=== PATIENT | female | born 2000 | race Hispanic/Latino ===

== ENCOUNTER 2020-03-09 11:20 | Emergency (ER) | payer BC ==
[~2020-03-09] VITALS: Ht 152.4 cm; Wt 68.2 kg
[2020-03-09 14:13] VITALS: BP 125/81
--- NOTE | 2020-03-11 10:39 | NUR ---
Notified patient of positive Covid results. Pateint denies symptoms. Advised patient to quarantine until contacted by the [facility] with further instructions. Advised patient to return to the ED with any difficulty breathing or other urgent needs. Patient verbalized understanding.
== END 2020-03-09 14:13 | disposition home or self-care (01) | DRG 179 ==
LOC: ED 11:20
DX: U07.1 COVID-19 (principal); J06.9 Acute upper respiratory infection, unspecified; R52 Pain, unspecified; R50.9 Fever, unspecified